=== PATIENT | female | born 1985 | race Caucasian/White ===

== ENCOUNTER 2017-02-19 21:14 | Outpatient (CLI) | payer MEDICAID ==
[~2017-02-19] VITALS: Ht 162.6 cm; Wt 85.2 kg
[~2017-02-19 21:14] MED LIST: FERR325C PO; IBUP800T25 PO
[2017-02-19 22:44] VITALS: Ht 162.6 cm; Wt 85.2 kg
--- NOTE | 2017-02-19 23:09 | RADRPT ---
PROCEDURE: US OB amniotic fluid index. CLINICAL INDICATION: Decreased movement. Clinical estimate gestational age is 35 weeks 6 da ys with estimated date of delivery 03/20/2017 TECHNIQUE: Multiple sonographic images of the pelvis were obtained. The images were reviewed on a PACS workstation. COMPARISON: 11/04/2016 FINDINGS: There is a single live intrauterine gestation. Cardiac activity is present with 163 beats per minut e. There is a cephalic position. The placenta is anterior and grade 2. There is no evidence for an abruption. There is a normal amount of amniotic fluid with an YOLA = 13.43 cm. IMPRESSION: Single live intrauterine gestation. Amniotic fluid index equals 13.43 cm. RPTAT: HJES .Haim Katz MD, MD Date Time Electronically viewed and signed by .Haim Katz MD, on 02/19/2017 23:09 .S/
--- NOTE | 2017-02-19 23:37 | TRIAGE ---
OB Triage Datetime Report Generated by CPN: 02/19/2017 23:36 Datetime: 02/19/2017 23:29 Stage of : OB Triage Datetime: 02/19/2017 22:30 Labor Evaluation Frequency: X3 Monitor Mode: External Duration (sec)2399: 60 Pattern: Normal: <= 5 Contractions in 10 Minutes Heart Rate FHR Baseline Rate: 145 Monitor Mode: External US FHR Baseline Changes: No Baseline Change Variability: Moderate 6-25 bpm Accelerations: 15X15 Datetime: 02/19/2017 21:19 EGA: 35.6 Datetime: 02/19/2017 21:14 Stage of : OB Triage Temperature Route: Oral Pain Assessment Pain Scale: 4 Pain Presence: Constant Pain Type: Burning Pain Location: Abdomen Datetime: 02/19/2017 21:10 Stage of : OB Triage Assessment Type: Triage Maternal Assessment Level of Consciousness: Fully Conscious Headache: Denies Blurred Vision: No Respiratory Effort: Unlabored; Regular Rhythm; Equal Expansion Nausea/Vomiting: Denies RUQ Epigastric Pain: Denies Facial Edema: None Fall Risk Assessment History of Falling: (0) No Secondary Diagnosis: (0) No Ambulatory Aid: (0) Bedrest/Nurse Assist IV Therapy: (0) No Gait: (0) Normal/Bedrest/Immobile Mental Status: (0) Oriented to Own Ability Fall Score: 0 Fall Risk Score Definition: No Risk: No action required Monitor Mode: External Contraction Comments: MONITORS APPLIED Monitor Mode: External US Comments: MONITORS APPLIED Datetime: 02/19/2017 21:05 Time of Arrival: 02/19/2017 21:05 Arrived By: Ambulatory Arrived From: Home Chief Complaint: PAIN AT LEFT OF UMBILICUS Movement: Present Contractions: Denies/Absent Rupture of Membranes: Denies Vaginal Discharge: Denies Recent Sexual Intercouse: Denies Abdominal Trauma: Not Applicable Patient Complaints: Other Time Provider Notified: 02/19/2017 22:00 Provider Notified: VAN Initial Plan: CURTM, CALL OB
--- NOTE | 2017-02-20 03:58 | PN ---
Triage Information Date/Time 02/19/2017 Reason for visit: Pain in the left side of the umbilicus. Weeks of Gestation 36 weeks /Para 1 para 0 Diabetes: none Hypertention: none Additional information 32-year-old with IUP at 36 weeks presented to complain of pain in the left side of the umbilicus. Patient reports pain started when she was laughing hard and with straining and carrying objects. Denies any leaking of fluid, vaginal bleeding or decreased movement. Has no other complaint. Noted to have the umbilicus hernia. She denies any trouble bowel movement or with defecation or passing gas. Denies any nausea or vomiting. Objective Heart Rate: 130's Contractions: None Exam General appearance: Alert and oriented 4. Patient does not appear to be in any acute distress. Abdomen: Soft, gravid, fundal height consistent with gestational age, there is a 1 x 1 cm umbilical hernia. No evidence of strangulation or incarceration Extremities: No calf tenderness, no click no edema Results/Medications Imaging Results PROCEDURE: US OB amniotic fluid index. CLINICAL INDICATION: Decreased movement. Clinical estimate gestational age is 35 weeks 6 days with estimated date of delivery 03/20/2017 TECHNIQUE: Multiple sonographic images of the pelvis were obtained. The images were reviewed on a PACS workstation. COMPARISON: 11/04/2016 FINDINGS: There is a single live intrauterine gestation. Cardiac activity is present with 163 beats per minute. There is a cephalic position. The placenta is anterior and grade 2. There is no evidence for an abruption. There is a normal amount of amniotic fluid with an YOLA = 13.43 cm. IMPRESSION: Single live intrauterine gestation. Amniotic fluid index equals 13.43 cm. RPTAT: HJES Disposition: Discharge Assessment/Plan IUP at 36 weeks Pain in the left side of the abdomen. No evidence of acute abdomen. No evidence of hernia strangulation or incarceration. Abdominal pain likely musculoskeletal. No evidence of labor. testing reassuring DC home. Follow-up within her primary OB within 24-48 hours after discharge from the hospital with strict labor precaution and kick count discussed. Patient verbalized understanding. OLAF ARAUJO MD Feb 20, 2017 03:58
== END 2017-02-19 23:36 | disposition home or self-care (01) ==
LOC: OBT 21:14 → L-D 21:15 → OBT 23:36
PROVIDERS: ATTEND Obstetrics & Gynecology
DX: O26.893 Other specified pregnancy related conditions, third trimester (principal); R10.9 Unspecified abdominal pain; Z3A.36 36 weeks gestation of pregnancy
CPT/HCPCS: 76815; G0463

== ENCOUNTER 2017-03-18 05:33 | Inpatient (IN) | payer MEDICAID ==
[~2017-03-18] VITALS: Ht 162.6 cm; Wt 87.4 kg
[~2017-03-18 05:33] MED LIST changes: -IBUP800T25 PO
[2017-03-18 06:30] VITALS: Ht 162.6 cm; Wt 87.4 kg
[2017-03-18 06:31] VITALS: BP 115/55; PULSE 102; RESP 18
[2017-03-18 07:27] LABS: ADD UMIC YES; UR ASCORBIC ACID NEGATIVE (NEGATIVE); UR BACTERIA FEW /HPF (NONE SEEN); UR BILIRUBIN (Dip) NEGATIVE (NEGATIVE); UR BLOOD (Dip) 2+ mg/dL (NEGATIVE); UR CLARITY CLEAR (CLEAR); UR COLOR YELLOW (YELLOW); UR GLUCOSE (Dip) NEGATIVE (NEGATIVE); UR KETONES (Dip) NEGATIVE (NEGATIVE); UR LEUKOCYTE ESTERASE (Dip) NEGATIVE Leu/ul (NEGATIVE); UR NITRITE (Dip) NEGATIVE (NEGATIVE); UR RBC 1 /HPF (0-5); UR TOTAL PROTEIN (Dip) NEGATIVE (NEGATIVE); UR UROBILINOGEN (Dip) NEGATIVE (NEGATIVE)
--- NOTE | 2017-03-18 07:48 | RADRPT ---
PROCEDURE: OB ultrasound for biophysical profile CLINICAL INDICATION: Leaking fluid. TECHNIQUE: Multiple sonographic images of the pelvis were obtained. Transabdominal view of the gr avid uterus are available for review. The images were reviewed on a PACS workstation. COMPARISON: 02/19/2017 FINDINGS: breathing movement = 2/2 tone = 2/2 motion = 2/2 Quantitative amniotic fluid volume = 2/2 YOLA = 5.2 cm Single live intrauterine with cardiac activity at 135 beats per minute. There is a anterior placenta without previa or abruption. IMPRESSION: 1. Single living intrauterine gestation in cephalic position. 2. Biophysical profile = 8/8. 3. YOLA = 5.22 cm. RPTAT: AACC Physician Matt Date Time Electronically viewed and signed by Physician Matt on 03/18/2017 07:48 /
[2017-03-18] MEDS ORDERED: IBUPROFEN 600 MG TAB PO PRN (08:00)
[2017-03-18] MEDS ORDERED: LIDOCAINE 1% (MPF) 30 ML INJ INJ PRN (08:00)
[2017-03-18] MEDS ORDERED: MISOPROSTOL 200 MCG TAB PR PRN ×2 (08:00→22:00)
[2017-03-18] MEDS ORDERED: OXYTOCIN 30 UNITS/LR 500 ML IV PRN ×2 (08:00→22:00)
[2017-03-18] MEDS ORDERED: CARBOPROST 250 MCG INJ IM PRN ×2 (08:00→22:00)
[2017-03-18] MEDS ORDERED: BUTORPHANOL 2 MG INJ IV PRN (08:00)
[2017-03-18] MEDS ORDERED: METHYLERGONOVINE 0.2 MG INJ IM PRN ×2 (08:00→22:00)
[2017-03-18] MEDS ORDERED: OXYTOCIN 30 UNITS/LR 500 ML IV SCH ×4 (08:00→21:40)
[2017-03-18] MEDS: LACTATED RINGER'S 1,000 ML IV SCH ×2 (08:39→14:57)
[2017-03-18 08:47] LABS: BASOPHILS % 0.4 % (0.0-2.0); EOSINOPHILS # 0.1 10^3/ul (0.0-0.5); EOSINOPHILS % 0.5 % (0.0-7.0); HEMATOCRIT 38.2 % (37.0-47.0); HEMOGLOBIN 12.8 g/dl (12.0-16.0); LYMPHOCYTES % 18.7 % (15.0-51.0); MEAN CORPUSCULAR HEMOGLOBIN 28.6 pg (29.0-33.0); MEAN CORPUSCULAR HGB CONC 33.5 g/dl (32.0-37.0); MEAN CORPUSCULAR VOLUME 85.5 fl (82.0-101.0); MEAN PLATELET VOLUME 10.2 fl (7.4-10.4); MONOCYTE # 0.9 10^3/ul (0.3-0.9); MONOCYTES % 8.8 % (0.0-11.0); NEUTROPHIL # 7.4 10^3/ul (1.6-7.5); NEUTROPHILS % 70.9 % (39.0-77.0); PLATELET COUNT 287 10^3/UL (140-415); RED BLOOD COUNT 4.47 10^6/ul (4.20-5.40); RED CELL DISTRIBUTION WIDTH 14.5 % (11.5-14.5); WHITE BLOOD COUNT 10.4 10^3/ul (4.8-10.8)
[2017-03-18 09:11] LABS: INR 0.86; PROTIME 11.8 Sec (11.9-14.9); PT RATIO 0.9
[2017-03-18 09:12] LABS: PARTIAL THROMBOPLASTIN TIME 26.1 Sec (25.0-35.0)
[2017-03-18] MEDS ORDERED: FENTAnyl 2MCG/ML-ROPIV 0.2% 100 ML ONE (14:30)
[2017-03-18] MEDS ORDERED: ONDANSETRON 4 MG INJ IV PRN (15:00)
[2017-03-18] MEDS ORDERED: NALOXONE (0.4 MG/ML) INJ IV PRN (15:00)
[2017-03-18] MEDS ORDERED: DIPHENHYDRAMINE 50 MG INJ IV PRN (15:00)
[2017-03-18] MEDS ORDERED: FENTAnyl 2MCG/ML-ROPIV 0.2% 100 ML BAG EPI SCH (15:00)
[2017-03-18] MEDS ORDERED: EPHEDrine SULFATE 50 MG/5 ML SYG IV PRN (15:00)
--- NOTE | 2017-03-18 20:09 | LDN ---
Date/Time of Note Date/Time of Note DATE: 03/18/17 TIME: 20:08 Delivery Summary term preg, vaginal delivery Placenta Delivered: Spontaneously Meconium: none Episiotomy: No Perineal laceration: 1 Anesthesia type: Epidural Estimated blood loss: 300 Sponge & Needle done & correct: Yes All needle counts correct: Yes Any foreign bodies felt in the: No Problems: JOANN WASHINGTON MD Mar 18, 2017 20:09
--- NOTE | 2017-03-18 20:10 | HP ---
Date/Time of Note Date/Time of Note DATE: 03/18/17 TIME: 20:09 OB - History Hx of Present Free Text/Dictation term preg in labor : 1 Para: 0 Care: Good Care Ultrasounds: Normal mid trimester US Obstetrical Complications: None Medical Complications: None Past Family/Social History * Past Medical, Surgical, Family and Obstetric Histories reviewed from chart. OB Admission Exam Vital Signs Vital Signs Vital Signs Date Time Temp Pulse Resp B/P Pulse Ox O2 Delivery O2 Flow Rate FiO2 03/18/17 06:31 98.5 102 18 115/55 Room Air Physical Exam HEENT: WNL Heart: Rhythm Normal Lungs: Clear, Equal Abdomen: WNL Extremities: Normal Reflexes: Normal Cervical Dilatation: 10cm Effacement: 100% Station: +3 Membranes: Ruptured Amniotic Fluid: Clear Heart Rate: 130's Accelerations: Accelerations Present Decelerations: No Decelerations Varibility: Marked Contractions on Admission: 6-10 Minutes Apart Last 72 hours Lab Results CBC & BMP 03/18/17 08:15 OB Assessment/Plan Reason for admission: active labor Plan: Expectant Management JOANN WASHINGTON MD Mar 18, 2017 20:10
[2017-03-18] MEDS ORDERED: LACTATED RINGER'S 1,000 ML IV* SCH (21:40)
[2017-03-18] MEDS ORDERED: ZOLPIDEM 5 MG TAB PO PRN (22:00)
[2017-03-18] MEDS ORDERED: DIPHENHYDRAMINE 25 MG CAP PO PRN (22:00)
[2017-03-18] MEDS ORDERED: ACETAMINOPHEN 325 MG TAB PO PRN (22:00)
[2017-03-18] MEDS ORDERED: LANOLIN 7 GM TUBE TOP PRN (22:00)
[2017-03-18] MEDS ORDERED: HYDROCODONE/APAP (5/325) TAB PO PRN (22:00)
[2017-03-18] MEDS ORDERED: SENNA/DOCUSATE NA (8.6MG/50MG) TAB PO PRN (22:00)
[2017-03-18] MEDS ORDERED: MAGNESIUM HYDROXIDE 30ML CUP PO PRN (22:00)
[2017-03-18 22:15] VITALS: BP 106/64; PULSE 85; RESP 18
[2017-03-18] MEDS: BENZOCAINE 20% 56 ML SPRAY TOP PRN (23:39)
[2017-03-18] MEDS: IBUPROFEN 800 MG TAB PO SCH (23:40)
[2017-03-18] MEDS: WITCH HAZEL/GLYCERIN PAD PR PRN (23:40)
[2017-03-19] VITALS: BP 100/62; PULSE 88; RESP 20
[2017-03-19 04:00] VITALS: BP 106/65; PULSE 91; RESP 18
[2017-03-19] MEDS: IBUPROFEN 800 MG TAB PO SCH ×4 (05:38→23:45)
[2017-03-19 08:50] VITALS: BP 105/62; PULSE 84; RESP 18
[2017-03-19 09:48] LABS: ABNORMAL IP MESSAGE 1; BASOPHIL # 0.1 10^3/ul (0.0-0.1); BASOPHILS % 0.3 % (0.0-2.0); EOSINOPHILS % 0.2 % (0.0-7.0); HEMATOCRIT 36.1 % (37.0-47.0); HEMOGLOBIN 12.1 g/dl (12.0-16.0); LYMPHOCYTES # 2.1 10^3/ul (0.8-2.9); MEAN CORPUSCULAR HEMOGLOBIN 28.7 pg (29.0-33.0); MEAN CORPUSCULAR HGB CONC 33.5 g/dl (32.0-37.0); MEAN CORPUSCULAR VOLUME 85.5 fl (82.0-101.0); MEAN PLATELET VOLUME 10.2 fl (7.4-10.4); MONOCYTE # 1.7 10^3/ul (0.3-0.9); MONOCYTES % 10.4 % (0.0-11.0); NEUTROPHIL # 12.1 10^3/ul (1.6-7.5); NEUTROPHILS % 75.5 % (39.0-77.0); PLATELET COUNT 285 10^3/UL (140-415); RED BLOOD COUNT 4.22 10^6/ul (4.20-5.40); RED CELL DISTRIBUTION WIDTH 14.9 % (11.5-14.5)
[2017-03-19 10:28] LABS: ANISOCYTOSIS 1+ (0-0); EOSINOPHILS % (M) 1 % (0-7); METAMYELOCYTES %M 1 % (0-0); MONOCYTES % (M) 10 % (0-11); PLATELET ESTIMATE NORMAL; POLYCHROMASIA 1+ (0-0); REACTIVE LYMPHOCYTES% (M) 4 % (0-0)
--- NOTE | 2017-03-19 12:04 | PN ---
Date/Time of Note Date/Time of Note DATE: 03/19/17 TIME: 12:03 OB Subjective Subjective Subjective Breast-feeding. Decreased vaginal bleeding. Ambulating. Denies any complaint. Urinated. OB Objective Objective Objective General appearance: Alert and oriented 4. Patient does not appear to be in any acute distress. Abdomen: Soft, no fundal tenderness, no rebound tenderness, no guarding, no rigidity Breast: No evidence of engorgement, mastitis or fissure extremities: No calf tenderness, no cords palpable , Negative Homans sign Hematology - 72 Hrs Test 03/18/17 08:15 03/19/17 09:22 White Blood Count 10.410^3/ul (4.8-10.8) # 16.010^3/ul (4.8-10.8) #H Red Blood Count 4.4710^6/ul (4.20-5.40) 4.2210^6/ul (4.20-5.40) Hemoglobin 12.8g/dl (12.0-16.0) 12.1g/dl (12.0-16.0) Hematocrit 38.2% (37.0-47.0) 36.1% (37.0-47.0) L Mean Corpuscular Volume 85.5fl (82.0-101.0) 85.5fl (82.0-101.0) Mean Corpuscular Hemoglobin 28.6pg (29.0-33.0) L 28.7pg (29.0-33.0) L Mean Corpuscular Hemoglobin Concent 33.5g/dl (32.0-37.0) 33.5g/dl (32.0-37.0) Red Cell Distribution Width 14.5% (11.5-14.5) # 14.9% (11.5-14.5) H Platelet Count 86331^3/UL (140-415) 19013^3/UL (140-415) Mean Platelet Volume 10.2fl (7.4-10.4) # 10.2fl (7.4-10.4) Neutrophils % 70.9% (39.0-77.0) 75.5% (39.0-77.0) Lymphocytes % 18.7% (15.0-51.0) 13.0% (15.0-51.0) L Monocytes % 8.8% (0.0-11.0) 10.4% (0.0-11.0) Eosinophils % 0.5% (0.0-7.0) 0.2% (0.0-7.0) Basophils % 0.4% (0.0-2.0) 0.3% (0.0-2.0) Nucleated Red Blood Cells % 0.0/100WBC (0.0-0.0) 0.0/100WBC (0.0-0.0) Neutrophils # 7.410^3/ul (1.6-7.5) 12.110^3/ul (1.6-7.5) H Lymphocytes # 2.010^3/ul (0.8-2.9) 2.110^3/ul (0.8-2.9) Monocytes # 0.910^3/ul (0.3-0.9) 1.710^3/ul (0.3-0.9) H Eosinophils # 0.110^3/ul (0.0-0.5) 0.010^3/ul (0.0-0.5) Basophils # 0.010^3/ul (0.0-0.1) 0.110^3/ul (0.0-0.1) Nucleated Red Blood Cells # 0.010^3/ul (0.0-0.0) 0.010^3/ul (0.0-0.0) Segmented Neutrophils % (Manual) 56% (39-77) Band Neutrophils % (Manual) 12% (0-4) H Lymphocytes % (Manual) 16% (15-51) Reactive Lymphocytes % (Manual) 4% (0-0) H Monocytes % (Manual) 10% (0-11) Eosinophils % (Manual) 1% (0-7) Metamyelocytes % (manual) 1% (0-0) H Neutrophils # (Manual) 9.310^3/ul (1.7-7.5) H Band Neutrophils # 1.910^3/ul (0.0-0.6) H Absolute Lymphocytes (Manual) 2.510^3/ul (0.8-2.9) Reactive Lymphocytes # 0.610^3/ul (0.0-0.0) H Absolute Monocytes (Manual) 1.610^3/ul (0.3-0.9) H Metamyelocytes # 0.110^3/ul (0.0-0.0) H Platelet Estimate NORMAL Polychromasia 1+ (0-0) Anisocytosis 1+ (0-0) OB Assessment/Plan Other Assessment: Status post , day #1 Doing well Routine care Anticipate DC home tomorrow OLAF ARAUJO MD Mar 19, 2017 12:04
[2017-03-19 12:05] VITALS: BP 108/56; PULSE 90
[2017-03-19 16:30] VITALS: BP 106/54; PULSE 101; RESP 18
[2017-03-19 20:00] VITALS: BP 98/55; PULSE 89; RESP 20
[2017-03-20 04:00] VITALS: BP 101/52; PULSE 86; RESP 19
[2017-03-20] MEDS: IBUPROFEN 800 MG TAB PO SCH ×3 (05:31→17:46)
[2017-03-20 08:00] VITALS: BP 98/53; PULSE 91; RESP 18
[2017-03-20] MEDS: WITCH HAZEL/GLYCERIN PAD PR PRN (08:20)
[2017-03-20] MEDS: BENZOCAINE 20% 56 ML SPRAY TOP PRN (08:20)
[2017-03-20] MEDS ORDERED: VARICELLA VACCINE LIVE/PF 1,350 UNIT/0.5 ML ML SC* ONE (09:00)
[2017-03-20] MEDS ORDERED: DIPHTH/TET/ACEL PERTUSS (ADULT) 0.5 ML VIAL IM* ONE (09:00)
[2017-03-20] MEDS ORDERED: MEASLES,MUMPS,RUBELLA VACCINE INJ SC* ONE (09:00)
--- NOTE | 2017-03-20 10:04 | DS ---
Date/Time of Note Date/Time of Note DATE: 03/20/17 TIME: 09:59 Obstetrical Discharge Record Final Diagnosis Final Diagnosis: delivered Vaginal Delivery Obstetrical Delivery: Spontaneous Other Delivery information perineal laceration healing Complications Augmentation: Yes Rupture of Membranes: Yes Condition on Discharge Physical Assessment Last Vitals: Post day 2 Doing Well Afebrile Ambulatory Chest Clear Breasts are soft , Nipples are intact Abdomen is soft Fundus is firm Moderate amount of lochia Incision is clean ,No evidence of infection No calf tenderness No ankle edema Current Medications Medications (Trade) Dose Ordered Sig/Gretta Route PRN Reason Start Time Stop Time Status Last Admin Dose Admin Lactated Ringer's 1,000 ml @ 125 mls/hr Q8H IV 03/18/17 07:54 03/18/17 21:42 DC 03/18/17 14:57 Oxytocin/Lactated Ringer's 500 ml @ 0 mls/hr TITRATE IV 03/18/17 08:00 03/18/17 21:42 DC 03/18/17 09:16 Butorphanol Tartrate (Stadol) 2 mg Q2H PRN IV PAIN 03/18/17 08:00 03/18/17 21:42 DC Lidocaine 30 ml 30 ml ONCE PRN INJ EPISIOTOMY/TEARING 03/18/17 08:00 03/18/17 21:42 DC Oxytocin/Lactated Ringer's 500 ml @ 500 mls/hr ONCE POST IV 03/18/17 08:00 03/18/17 21:42 DC Oxytocin/Lactated Ringer's 500 ml @ 125 mls/hr POST IV 03/18/17 08:00 03/18/17 21:42 DC 03/18/17 20:16 Ibuprofen 600 mg 600 mg ONCE PRN PO Mild Pain (Pain Score 1-3) 03/18/17 08:00 03/18/17 21:42 DC 03/18/17 20:42 Oxytocin/Lactated Ringer's 500 ml @ 0 mls/hr ONCE PRN IV For Hemorrhage Management 03/18/17 08:00 03/18/17 21:42 DC Methylergonovine Maleate (Methergine) 0.2 mg ONCE PRN IM VAGINAL BLEEDING 03/18/17 08:00 03/18/17 21:42 DC Carboprost Tromethamine (Hemabate) 250 mcg ONCE PRN IM VAGINAL BLEEDING 03/18/17 08:00 03/18/17 21:42 DC Misoprostol 1000 mcg 1,000 mcg ONCE PRN VA VAGINAL BLEEDING 03/18/17 08:00 03/18/17 21:42 DC Fentanyl/ Ropivacaine 100 ml @ ud STK-MED ONCE .ROUTE 03/18/17 14:30 03/18/17 14:31 DC Naloxone HCl (Narcan) 0.1 mg Q2M PRN IV FOR RESP RATE 8 OR LESS 03/18/17 15:00 03/18/17 21:42 DC Diphenhydramine HCl (Benadryl) 25 mg Q6H PRN IV ITCHING 03/18/17 15:00 03/18/17 21:42 DC Ondansetron HCl (Zofran Inj) 4 mg Q6H PRN IV NAUSEA AND/OR VOMITING 03/18/17 15:00 03/18/17 21:42 DC Fentanyl/ Ropivacaine 100 ml EPIDURAL INFUSION EPI 03/18/17 15:00 03/18/17 21:42 DC Ephedrine Sulfate 5 mg 5 mg PRN PRN IV BLOOD PRESSURE SUPPORT 03/18/17 15:00 03/18/17 21:42 DC Oxytocin/Lactated Ringer's 500 ml @ 50 mls/hr Q10H IV 03/18/17 21:40 03/19/17 07:39 DC 03/19/17 03:41 Lactated Ringer's (Lr) 1,000 ml @ 125 mls/hr Q8H IV* 03/18/17 21:40 03/19/17 11:22 DC Ibuprofen (Motrin) 800 mg Q6 PO 03/19/17 00:00 03/20/17 05:31 Acetaminophen/ Hydrocodone Bitart ([place] (5/325)) 2 tab Q4H PRN PO PAIN LEVEL 6-10 03/18/17 22:00 Diphenhydramine HCl (Benadryl) 25 mg Q6H PRN PO PRURITUS 03/18/17 22:00 Zolpidem Tartrate (Ambien) 10 mg QHS PRN PO INSOMNIA 03/18/17 22:00 Senna/Docusate Sodium (Senokot-S) 1 tab BID PRN PO CONSTIPATION 03/18/17 22:00 03/20/17 08:20 Magnesium Hydroxide (Milk Of Mag) 30 ml Q12H PRN PO CONSTIPATION 03/18/17 22:00 Witch Lora/ Glycerin (Tucks Pads) 1 pad BEDSIDE MEDICATION PRN VA HEMORRHOID/EPISIOTMY PAIN 03/18/17 22:00 03/20/17 08:20 Benzocaine (Dermoplast [place]) 1 spray BEDSIDE MEDICATION PRN TOP HEMORRHOID/EPISIOTMY PAIN 03/18/17 22:00 03/20/17 08:20 Lanolin (Cyr-P-Ntpmla) 1 applic BEDSIDE MEDICATION PRN TOP BEDSIDE FOR ИРИНА TO NIPPLES 03/18/17 22:00 03/18/17 23:39 Measles/Mumps/ Rubella Vaccine Live (Mmr Ii Vaccine) 0.5 ml ONCE ONCE SC* 03/20/17 09:00 03/20/17 09:01 DC Diphtheria/ Tetanus/Acell Pertussis (Adacel) 0.5 ml ONCE ONCE IM* 03/20/17 09:00 03/20/17 09:01 DC Varicella Virus Vaccine Live (Varivax Vaccine With Diluent) 1,350 unit ONCE ONCE SC* 03/20/17 09:00 03/20/17 09:01 DC Acetaminophen 650 mg 650 mg Q4H PRN PO ELEVATED TEMPERATURE 03/18/17 22:00 Oxytocin/Lactated Ringer's 500 ml @ 0 mls/hr ONCE PRN IV For Hemorrhage Management 03/18/17 22:00 Methylergonovine Maleate (Methergine) 0.2 mg ONCE PRN IM VAGINAL BLEEDING 03/18/17 22:00 Carboprost Tromethamine (Hemabate) 250 mcg ONCE PRN IM VAGINAL BLEEDING 03/18/17 22:00 Misoprostol (Cytotec) 1,000 mcg ONCE PRN VA VAGINAL BLEEDING 03/18/17 22:00 New born is under light therapy Voiding: Yes Bowel Movement: Yes Breast: Soft, non-tender Fundus: Firm Episiotomy: healing Calf Tenderness: No Patient Condition: Good INES RIVERA MD Mar 20, 2017 10:04
[2017-03-20 15:47] VITALS: BP 102/65; PULSE 89; RESP 18
== END 2017-03-20 18:40 | disposition home or self-care (01) | DRG 775 ==
LOC: OBT 05:33 → L-D 05:33 → OBT 07:58 → PP1 21:40
PROVIDERS: ADMIT Obstetrics & Gynecology; ATTEND Obstetrics & Gynecology
PROC: 10E0XZZ Delivery of Products of Conception, External Approach (ICD-10-PCS; principal; 2017-03-18)
PROC: 0HQ9XZZ Repair Perineum Skin, External Approach (ICD-10-PCS; 2017-03-18)
PROC: 4A1HXCZ Monitoring of Products of Conception, Cardiac Rate, External Approach (ICD-10-PCS; 2017-03-18)
DX: O70.0 First degree perineal laceration during delivery (principal); Z37.0 Single live birth; Z3A.39 39 weeks gestation of pregnancy
CPT/HCPCS: 36415; 62319; 76818; 81001; 84112; 85025; 85610; 85730; 86592; 86850; 86900; 86901; 87086; 87340; 90715; 90716; G0463; J2590; J3010; J7120

== ENCOUNTER 2017-03-31 16:56 | Emergency (ER) | END 2017-03-31 20:48 | disposition home or self-care (01) ==

== ENCOUNTER 2017-05-01 06:15 | Emergency (ER) | END 2017-05-01 10:51 | disposition home or self-care (01) ==

== ENCOUNTER 2018-07-20 22:07 | Emergency (ER) | payer MEDICAID ==
[~2018-07-20] VITALS: Ht 162.6 cm; Wt 72.0 kg
[~2018-07-20 22:07] MED LIST changes: +FERR140T3 PO; +IBUP-1542 PO
[2018-07-20 22:13] VITALS: Ht 162.6 cm; Wt 72.0 kg
--- NOTE | 2018-07-21 02:21 | ERD ---
ER Documentation Chief Complaint Chief Complaint 6WKS; VAG BLEEDING XTODAY; [id number] HPI Is a 33-year-old female G2, P1 approximately 6 weeks complaining of vaginal bleeding that began today that was mild. She denies any pelvic pain. No dysuria or frequency. No fever. No nausea or vomiting. ROS All systems reviewed and are negative except as per history of present illness. Medications Home Meds Active Scripts Ibuprofen* (Motrin*) 600 Mg Tab, 600 MG PO Q6, #30 TAB Prov:BRITTANY ASHLEY 05/01/17 Ferrous Sulfate* (Ferrous Sulfate*) 140 Mg Tablet.er, 140 MG PO DAILY for 15 Days, TAB Prov:GABIBRITTANY C 05/01/17 Reported Medications Ferrous Sulfate (Iron) 325 Mg Capsr, 325 MG PO BID, BOTTLE 03/05/15 Allergies Allergies: Coded Allergies: No Known Allergy (Unverified , 03/18/17) PMhx/Soc History of Surgery: No Anesthesia Reaction: No Hx Neurological Disorder: No Hx Respiratory Disorders: No Hx Cardiac Disorders: No Hx Psychiatric Problems: Yes (DEPRESSION) Hx Miscellaneous Medical Probl: No Hx Alcohol Use: No Hx Substance Use: No Hx Tobacco Use: No FmHx Family History: No diabetes Physical Exam Vitals Vital Signs Date Temp Pulse Resp B/P (MAP) Pulse Ox O2 O2 Flow FiO2 Time Delivery Rate 07/20/18 98.1 88 19 107/53 99 22:13 (71) Physical Exam INITIAL VITAL SIGNS: Reviewed by me GENERAL: Awake, alert and oriented x 4, well appearing, nontoxic, speaking in full sentences. No acute distress RESPIRATORY: Clear to auscultation bilaterally. Symmetric chest wall rise. No wheezing or rales. No accessory muscle use. CV: Regular rate and rhythm. No murmurs, rubs, or gallops. ABDOMEN: Soft, non-distended. Nontender. Negative [place]. Negative McBurneys point tenderness. No CVA tenderness bilaterally. No guarding. No rebound. Result Diagram: 07/21/18 0012 Results 24 hrs Laboratory Tests Test 07/21/18 00:12 White Blood Count 8.9 10^3/ul Red Blood Count 4.60 10^6/ul Hemoglobin 12.7 g/dl Hematocrit 40.0 % Mean Corpuscular Volume 87.0 fl Mean Corpuscular Hemoglobin 27.6 pg Mean Corpuscular Hemoglobin Concent 31.8 g/dl Red Cell Distribution Width 13.7 % Platelet Count 304 10^3/UL Mean Platelet Volume 9.4 fl Immature Granulocytes % 0.300 % Neutrophils % 56.2 % Lymphocytes % 31.9 % Monocytes % 9.9 % Eosinophils % 1.1 % Basophils % 0.6 % Nucleated Red Blood Cells % 0.0 /100WBC Immature Granulocytes # 0.030 10^3/ul Neutrophils # 5.0 10^3/ul Lymphocytes # 2.8 10^3/ul Monocytes # 0.9 10^3/ul Eosinophils # 0.1 10^3/ul Basophils # 0.1 10^3/ul Nucleated Red Blood Cells # 0.0 10^3/ul Urine Color STRAW Urine Clarity SLIGHTLY CLOUDY Urine pH 7.0 Urine Specific Rudd 1.014 Urine Ketones NEGATIVE mg/dL Urine Nitrite NEGATIVE mg/dL Urine Bilirubin NEGATIVE mg/dL Urine Urobilinogen NEGATIVE mg/dL Urine Leukocyte Esterase TRACE Slim/ul Urine Microscopic RBC > 182 /HPF Urine Microscopic WBC 3 /HPF Urine Bacteria FEW /HPF Urine Hemoglobin 3+ mg/dL Urine Glucose NEGATIVE mg/dL Urine Total Protein NEGATIVE mg/dl Beta HCG, Quantitative 546.2 mIU/ml Procedures/MDM The differential diagnosis includes but is not limited to threatened/incomplete/inevitable/complete , ectopic , non- related bleeding, and others. Beta-hCG is 546.2, which is low.Us shows Small sac-like structure in the endometrial cavity likely represents an early intrauterine . Estimated gestational age by mean sac diameter is 4 weeks 6 days that is not concordant with the expected gestational age by dates. Without visualizing a yolk sac or embryo, a definitive diagnosis of intrauterine cannot be made and, therefore, ectopic cannot be completely excluded but is extremely unlikely. Furthermore, viability cannot be established. Patient is to return in 2 to 3 days for follow-up beta-hCG tr ending and ultrasound. Patient counseled regarding my diagnostic impression and care plan. Prior to discharge all questions answered. Pt agrees with treatment plan and understands strict return precautions. Pt is instructed to follow up with primary care provider within 24-48 hours. Precautionary instructions provided including instructions to return to the ER if not improving or for any worsening or changing symptoms or concerns. Departure Diagnosis: Primary Impression: Threatened Condition: Stable Patient Instructions: Possible Miscarriage (Threatened ) Additional Instructions: Llame al doctor MAANA y marlon patrice JJ PARA DENTRO DE 1-2 BARBA.Dgale a la secretaria que nosotros le instruimos hacer esta jj.Avise o llame si blandon condicin se empeora antes de la jj. Regresa aqui si peor o no mejor. J LUIS MIRZA PA-C Jul 21, 2018 02:21
[2018-07-21 02:22] VITALS: BP 117/65; PULSE 78; RESP 20
== END 2018-07-21 02:31 | disposition home or self-care (01) ==
LOC: FTE 22:07
DX: O20.0 Threatened abortion (principal); Z3A.01 Less than 8 weeks gestation of pregnancy
CPT/HCPCS: 76801; 76817; 81001; 84702; 85025; 86900; 86901; Z7502

== ENCOUNTER 2018-07-25 21:22 | Emergency (ER) | payer MEDICAID ==
[~2018-07-25] VITALS: Ht 165.1 cm; Wt 73.9 kg
[2018-07-25 21:26] VITALS: Ht 165.1 cm; Wt 73.9 kg
[2018-07-26] MEDS ORDERED: ACETAMINOPHEN 325 MG TAB PO STA (02:52)
--- NOTE | 2018-07-26 03:00 | ERD ---
ER Documentation Chief Complaint Chief Complaint VAGINAL BLEEDING X FRIDAY. APPROX 3 PADS/DAY. 6 WEEKS . HPI This is a 33-year-old female patient who presents to the emergency room with complaint of continued vaginal bleeding at 7 weeks . Patient was seen here 7 days ago with the same complaint, followed up with her OB who redrew her hCG level but the patient is unaware of the results. Patient returns to the [facility] room today because now she is having left lower quadrant pain. States that she is having bright red blood that is staining approximately 3 pads per day. No nausea, no vomiting, no dysuria, no fevers. LMP: 06/07/18 ROS All systems reviewed and are negative except as per history of present illness. Medications Home Meds Active Scripts Ibuprofen* (Motrin*) 600 Mg Tab, 600 MG PO Q6, #30 TAB Prov:VOLODYMRY MONDRAGON [employer] TO [employer] 07/26/18 Ibuprofen* (Motrin*) 600 Mg Tab, 600 MG PO Q6, #30 TAB Prov:BRITTANY ASHLEY 05/01/17 Ferrous Sulfate* (Ferrous Sulfate*) 140 Mg Tablet.er, 140 MG PO DAILY for 15 D ays, TAB Prov:BRITTANY ASHLEY 05/01/17 Reported Medications Ferrous Sulfate (Iron) 325 Mg Capsr, 325 MG PO BID, BOTTLE 03/05/15 Allergies Allergies: Coded Allergies: No Known Allergy (Unverified , 03/18/17) PMhx/Soc History of Surgery: No Anesthesia Reaction: No Hx Neurological Disorder: No Hx Respiratory Disorders: No Hx Cardiac Disorders: No Hx Psychiatric Problems: Yes (DEPRESSION) Hx Miscellaneous Medical Probl: No Hx Alcohol Use: No Hx Substance Use: No Hx Tobacco Use: No Smoking Status: Never smoker FmHx Family History: No diabetes, No coronary disease, No other Physical Exam Vitals Vital Signs Date Temp Pulse Resp B/P (MAP) Pulse Ox O2 O2 Flow FiO2 Time Delivery Rate 07/26/18 97.5 80 18 111/56 100 Room Air 06:56 (74) 07/25/18 96.5 85 20 118/58 99 21:26 (78) Physical Exam Const: No acute distress Head: Atraumatic Eyes: Normal Conjunctiva ENT: Normal External Ears, Nose and Mouth. Neck: Full range of motion. No meningismus. Resp: Clear to auscultation bilaterally Cardio: Regular rate and rhythm, no murmurs Abd: Soft, LLQ tenderness, non distended. Normal bowel sounds. No hepato-or splenomegaly Skin: No petechiae or rashes Back: No midline or flank tenderness Ext: No cyanosis, or edema Neur: Awake and alert Psych: Normal Mood and Affect Result Diagram: 07/26/18 0300 Results 24 hrs Laboratory Tests Test 07/26/18 03:00 White Blood Count 8.2 10^3/ul Red Blood Count 4.34 10^6/ul Hemoglobin 12.1 g/dl Hematocrit 38.0 % Mean Corpuscular Volume 87.6 fl Mean Corpuscular Hemoglobin 27.9 pg Mean Corpuscular Hemoglobin Concent 31.8 g/dl Red Cell Distribution Width 13.4 % Platelet Count 274 10^3/UL Mean Platelet Volume 9.5 fl Immature Granulocytes % 0.200 % Neutrophils % 50.6 % Lymphocytes % 38.4 % Monocytes % 7.6 % Eosinophils % 2.7 % Basophils % 0.5 % Nucleated Red Blood Cells % 0.0 /100WBC Immature Granulocytes # 0.020 10^3/ul Neutrophils # 4.1 10^3/ul Lymphocytes # 3.1 10^3/ul Monocytes # 0.6 10^3/ul Eosinophils # 0.2 10^3/ul Basophils # 0.0 10^3/ul Nucleated Red Blood Cells # 0.0 10^3/ul Urine Color COLORLESS Urine Clarity CLEAR Urine pH 7.0 Urine Specific [place] 1.003 Urine Ketones NEGATIVE mg/dL Urine Nitrite NEGATIVE mg/dL Urine Bilirubin NEGATIVE mg/dL Urine Urobilinogen NEGATIVE mg/dL Urine Leukocyte Esterase NEGATIVE [place]/ul Urine Microscopic RBC 6 /HPF Urine Microscopic WBC 0 /HPF Urine Hemoglobin 3+ mg/dL Urine Glucose NEGATIVE mg/dL Urine Total Protein NEGATIVE mg/dl Beta HCG, Quantitative 22.7 mIU/ml Current Medications Medications Dose Sig/Gretta Start Time Status Last (Trade) Ordered Route PRN Stop Time Admin Dose Reason Admin 650 mg ONCE STAT 07/26/18 DC 07/26/18 Acetaminophen PO 02:52 03:08 (Tylenol 07/26/18 02:57 Tab) Procedures/MDM This is a 33-year-old G2, P1 who presents the emergency room with 7 days of vaginal bleeding. ED COURSE: The patient was stable throughout ED course. I kept the patient and/or family informed of laboratory and diagnostic imaging results throughout the ED course. DIAGNOSTIC IMAGING: No sonographic evidence for an intrauterine gestation. The previously visualized gestational sac is no longer visualized. This presumably represents an early failed . Clinical correlation is necessary. Read by radiologist. PROCEDURES: Vaginal exam: minimal dark brown blood mixed with mucus, os visible, no clots p resent MEDICATIONS GIVEN: Tylenol Patient tolerated medication well with no adverse reactions. Patient reported improvement in pain. MDM: This patient has had miscarriage as evidence by HCG decline and now at 22, US does not show evidence of . Pt verbalized understanding stating she did pass larger clot earlier yesterday which may have been the POC. Pt provided with comfort and reassurance. Pt provided with lab and US results to follow-up with her OB. Differential includes early normal , ectopic , failed . She is to return sooner for fevers, hemorrhaging, new worsening symptoms. Current signs or symptoms do not suggest appendicitis, acute surgical abdomen, additional concerning signs or symptoms or conditions. The patient was stable with no new complaints during the ER course. Clinically, there is no current evidence to suggest meningitis, sepsis, acute abdomen, pneumonia, stroke, acute coronary syndrome, pulmonary embolism, aortic dissection or any other emergent condition appearing to require further evaluation or hospitalization. Patient counseled regarding my diagnostic impression and care plan. Prior to discharge all questions answered. Pt agrees with treatment plan and understands strict return precautions. Pt is instructed to follow up with primary care provider within 24-48 hours. Precautionary instructions provided including instructions to return to the ER if not improving or for any worsening or changing symptoms or concerns. DISPOSITION: The patient has been discharge home to follow-up with community physician. Departure Diagnosis: Primary Impression: Miscarriage Condition: Stable Patient Instructions: Miscarriage, Spontaneous (Completed) Referrals: [facility] Additional Instructions: Thank you very much for allowing us to participate in your care. Your health and safety is our top priority at [facility]. Call your primary care doctor TOMORROW for an appointment during the next 2-4 days and bring all the information and medications prescribed. Have prescriptions filled and follow precisely the directions on the label. If the symptoms get worse and your provider is unavailable, return to the Emergency Department immediately. FOLLOW-UP WITH YOUR APRON MAN IN 1-2 DAYS USE IBUPROFEN AND HEATING PAD FOR COMFORT RETURN TO ER WITH WORSENING PAIN, INCREASED BLEEDING, FEVER VOLODYMYR MONDRAGON NP Jul 26, 2018 03:00
[2018-07-26] MEDS ORDERED: IBUP-1542 PO (06:53)
[2018-07-26 06:56] VITALS: BP 111/56; PULSE 80; RESP 18
== END 2018-07-26 06:57 | disposition home or self-care (01) ==
LOC: FTE 21:22
DX: O03.9 Complete or unspecified spontaneous abortion without complication (principal)
CPT/HCPCS: 76801; 76817; 81001; 84702; 85025; 86900; 86901; Z7610; 36415

== ENCOUNTER 2018-11-17 17:39 | Emergency (ER) | payer MEDICAID ==
[~2018-11-17] VITALS: Ht 162.6 cm; Wt 75.4 kg
[2018-11-17 18:04] VITALS: BP 108/53; PULSE 87; RESP 18; Ht 162.6 cm; Wt 75.4 kg
== END 2018-11-17 20:24 | disposition home or self-care (01) ==
LOC: FTE 17:39
DX: O02.1 Missed abortion (principal); Z3A.08 8 weeks gestation of pregnancy
CPT/HCPCS: 76801; 76817; 84702; 85025; Z7502